=== PATIENT | male | born 1945 | race Caucasian/White ===

== ENCOUNTER 2019-10-16 06:50 | Outpatient (CLI) | payer MEDICARE, SELFPAY ==
--- NOTE | ~2019-10-16 | MR_ITS ---
EXAMINATION: MR pelvis wo/w con INDICATION: Prostate cancer TECHNIQUE: Coronal SSFSE ARC, Axial and Coronal 2D FIESTA FatSat, Axial T2 FS, Axial SSFSE BH ARC, Ax ial 3D DualEcho BH, Axial SSFSE-IR Frank, Axial DWI b=600, pre and dynamic postcontrast Axial LAVA ARC, WATER:POST Cor LAVA-FLEX COMPARISON: None available CONTRAST: Multihance, 14 cc FINDINGS: Prostatomegaly is noted. There is a 1.9 x 1.7 cm area of T1 hypointense, T2 hyperintense si gnal intensity situated between the rectum and prostate, likely related to biopsy. Areas of T1 signal hyperintensity without enhancement of the prostate also likely reflect biopsy changes. There are no pathologically enlarged pelvic lymph nodes. The visualized osseous structures are normal. No dilated loops of bowel are present. No abnormal enhancement is identified after contrast administration. Ther e is a moderate volume of colonic stool. IMPRESSION: 1. Prostatomegaly and changes of transrectal biopsy without acute findings or metastatic disease iden tified. Reviewed, dictated and finalized at location A. IMPRESSION: 1. Prostatomegaly and changes of transrectal biopsy without acute findings or m etastatic disease identified.
[2019-10-16 07:32] LABS: Estimated Glomerular Filt Rate > 60
== END 2019-10-16 06:51 | disposition home or self-care (01) ==
PROVIDERS: PCP Emergency Medicine; Visit Provider Radiology Radiation Oncology
DX: C61 Malignant neoplasm of prostate (principal)
CPT/HCPCS: 36415; 72197; A9577

== ENCOUNTER 2025-02-10 21:22 | Emergency (ER) | payer MEDICARE, SELFPAY ==
--- OUTSIDE RECORDS SUMMARY | 2024-01-14 11:55 | XMS_ITS | Continuity of Care Document ---
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 Location Location Details Encounter Type Encounter Number Reason For Visit Attending Provider ADM Date DC Date Status Disposition Source [facility] Outpatient Encounter [id number] 01/13 [facility]
[2025-02-10] VITALS (9 sets, daily range): BP systolic 101–127; BP diastolic 49–96; PULSE 60–99; RESP 12–19; TEMP 36.6; O2SAT 97–100
--- NOTE | ~2025-02-10 | CT_ITS ---
CT abdomen pelvis w con INDICATION:abd pain, constipation . COMPARISON: None. TECHNIQUE: Axial images of the abdomen and pelvis were obtained following infusion of 100 mL Isovue 300. Dose optimization technique was utilized. FINDINGS: Mild groundglass opacity are noted at the lung bases. There is a small hiatal hernia. Fatty infiltration of the liver is noted. No intrahepatic mass or ductal dilatation is evident. The gallbladder is unremarkable. The pancreas and spleen are normal in appearance. The adrenal glands are symmetric in size. The kidneys demonstrate symmetric uptake and excretion of contrast. No cystic mass is evident. There is no solid mass. There is no hydronephrosis. Stomach and small bowel loops unremarkable. There is moderate diffuse stool retention consistent with constipation. No bowel obstruction. The bladder and rectum are normal. Prostate gland is unremarkable. Undescended right testicle is noted. No free intraperitoneal fluid or air is evident. There is no significant retroperitoneal lymphadenopathy. The aorta, visceral vessels and renal arteries demonstrate normal caliber and patency. The lower thoracic and lumbar vertebrae are in normal alignment. IMPRESSION: Moderate constipation. Undescended right testicle. All CT scans at this facility are performed using low dose modulation techniques as appropriate to perform exam including the following: automated exposure control; use of iterative reconstruction technique; adjustment of the mA and/or kV according to patient size (this includes techniques or standardized protocols for targeted exams where dose is matched to indication/reason for exam). Reviewed, dictated and finalized at location S. ATOLOGY TECHNICIAN IMPRESSION: Moderate constipation. Undescended right testicle. All CT scans at this facility are performed using low dose modulation techniqu es as appropriate to perform exam including the following: automated exposure c ontrol; use of iterative reconstruction technique; adjustment of the mA and/or kV according to patient size (this includes techniques or standardized protocol s for targeted exams where dose is matched to indication/reason for exam).
--- NOTE | ~2025-02-10 | XR_ITS ---
XR chest 2V HOSTORY: syncope COMPARISON:[ None] FINDINGS: Frontal and lateral views of the chest were obtained. The lungs are clear. The heart size is normal in size. Pulmonary vasculature is unremarkable. Osseous structures are intact. IMPRESSION: No acute lung findings.] [ ] Reviewed, dictated and finalized at location S. CTOR OF CONSUMER MARKETING
--- NOTE | 2025-02-10 21:30 | ECG_ITS ---
Test Date: 2025-02-10 21:45:45 Measurements Intervals Amber Rate: 60 P: 17 KS: 81 QRS: 18 QRSD: 105 T: 67 QT: 396 QTc: 398 Interpretive Statements SINUS RHYTHM WITH SHORT KS INTERVAL T WAVE ABNORMALITY IN ANTEROLATERAL LEADS- CONSIDER ISCHEMIA BASELINE ARTIFACT- I, II, III, AVR, AVL, AVF, V1-V6 ABNORMAL ECG No previous ECG available for comparison Electronically Signed On 02-11-2025 06:16:03 [employer]S DEPARTMENT SUPERVISOR by Santi Atkinson D.O.
[2025-02-10 21:57] LABS: Hematocrit 42.5 % (42.0-52.0); Hemoglobin 14.7 g/dL (14.0-18.0); Immature Granulocyte Percent A 0.6 % (0-0.5); Lymphocytes Absolute Auto 1.98 K/mm3 (0.9-3.2); Mean Corpuscular HGB Conc 34.6 g/dl (32-36); Mean Corpuscular Hemoglobin 31.6 pg (26-34); Mean Corpuscular Volume 91.4 fl (80-100); Nucleated Red Blood Cells Absolute Auto 0.000 K/mm3 (0.0-0.012); Nucleated Red Blood Cells Perc 0.0 % (0.0-0.2); Platelet Count Result 162 k/mm3 (150-375); Red Blood Count 4.65 M/mm3 (4.6-6.20); White Blood Count 14.9 K/mm3 (4.5-10.0)
[2025-02-10 22:06] LABS: Alanine Aminotransferase 9 U/L (6-50); Albumin Level 4.1 g/dL (3.5-5.1); Alkaline Phosphatase 47 U/L (38-126); Anion Gap 9 mmol/L (4-12); Aspartate Amino Transferase 23 U/L (17-59); Bilirubin,Total 0.8 mg/dL (0.2-1.3); Blood Urea Nitrogen 23 mg/dL (9-20); Calcium 9.0 mg/dL (8.4-10.2); Carbon Dioxide 24 mmol/L (22-30); Chloride 101 mmol/L (98-107); Estimated CRCL calculation 47 ml/min; Estimated Glomerular Filt Rate 60; Glucose 189 mg/dL (65-110); Potassium 3.2 mmol/L (3.4-5.0); Sodium 134 mmol/L (137-145); Total Protein 6.8 g/dL (6.3-8.2)
--- NOTE | 2025-02-10 22:29 | ED_ITS ---
HPI - Abdominal Pain General Chief Complaint: Syncope Stated Complaint: NEAR SYNCOPE, LOW B/P, NECK & ABD PAIN Time Seen by Provider: 02/10/25 22:16 History of Present Illness HPI narrative: 79-year-old male with a past medical history including hypertension, diabetes, parkinsonism presenting to the emergency department today after he was having trouble going to the bathroom. Patient states he was bearing down trying to have a bowel movement and unable to. He spent a long time on the toilet trying to poop. He states he felt very weak and lightheaded and became sweaty. EMS noted that his blood pressure was in the 70s and then quickly rebounded back to normal with suspect vagal response as he was no longer sweaty, nauseous, or having abnormal vitals. Patient states he was able to pass a small bowel movement but has a history of hemorrhoids. No rectal bleeding. Still feels like he is constipated. Denies any nausea, vomiting, fever, chills. He states he had some initial neck pain after he was sitting down head down on the toilet for long period of time over an hour but this is resolved now and no longer having any neck pain. Denies any chest pain, difficulty breathing, back pain, nausea, vomiting. States he still having some abdominal cramping in his lower quadrants and feels like he needs to poop. Was otherwise in his normal state of health without any recent health concerns. States it has happened to him previously secondary to potential hemorrhoid. Related Data Home Medications ?Medication ?Instructions ?Recorded ?Confirmed ?Last Taken ?Type carbidopa-levodopa [Sinemet] PO TID 12/30/24 12/30/24 Unknown History Allergies Allergy/AdvReac Type Severity Reaction Status Date / Time No Known Allergies Allergy Unverified 01/02/24 13:45 Review of Systems 2 Review of Systems: As reviewed above in HPI All systems reviewed & are unremarkable except as noted in HPI and below PMFSH Past Medical History Medical History Colon cancer screening declined Parkinsonism Bradycardia (~10/09/24) heart rate 40 at specialist office Tremor of right hand Arthralgia of both hands Low back pain radiating to right leg Erectile dysfunction Hyperlipidemia History of prostate cancer Treatment from Oct 2019-2019 High cholesterol Hypertension Diabetes Surgical History Surgical History H/O hand surgery Right-1999 Left- 2009 History of torn meniscus of right knee 1989 &1990 H/O elbow surgery right elbow 1980 Family History Family History Mother Lung cancer Grandparent Heart disease Acute myocardial infarction [place] Social History Social History Smoking status: Never smoker Alcohol intake: never Substance use: never Exam 2 Narrative: GENERAL: [Well-appearing, well-nourished, and in no acute distress.] HEAD: [Normocephalic, atraumatic.] EYES: [PERRLA and EOMI.] ENT: Nares clear, no rhinorrhea or epistaxis. Mucous membranes moist. NECK: Supple. CHEST: [Clear to auscultation. No respiratory distress.] HEART: [Regular rate and rhythm]. No murmur heard. [Normal peripheral pulses.] ABDOMEN: Soft and nondistended, minimally tender in the left lower quadrant to deep palpation without any signs of hernia or palpable masses. EXTREMITIES: Normal range of motion. [No edema.] SKIN: Warm, dry, no rash. NEURO: [No focal deficits]. Alert and oriented [x3.] PSYCH: [Normal mood and affect.] Course Vital Signs Vital signs: Vital Signs Temperature 36.6 C 02/10/25 21:30 Pulse Rate 64 02/10/25 21:30 Respiratory Rate 13 02/10/25 21:30 Blood Pressure 105/59 L 02/10/25 21:30 Pulse Oximetry 98 02/10/25 21:30 Oxygen Delivery Room Air 02/10/25 21:30 Temperature 36.6 C 02/10/25 21:30 Pulse Rate 81 02/11/25 01:16 Respiratory Rate 12 02/11/25 01:16 Blood Pressure 138/73 02/11/25 01:16 Pulse Oximetry 100 02/11/25 01:16 Oxygen Delivery Room Air 02/10/25 21:30 [facility] MDM Narrative Medical decision making narrative: 79-year-old male with a past medical history including hypertension, diabetes, parkinsonism presenting to the emergency department today after he was having trouble going to the bathroom. Patient states he was bearing down trying to have a bowel movement and unable to. He spent a long time on the toilet trying to poop. He states he felt very weak and lightheaded and became sweaty. EMS noted that his blood pressure was in the 70s and then quickly rebounded back to normal with suspect vagal response as he was no longer sweaty, nauseous, or having abnormal vitals. Patient states he was able to pass a small bowel movement but has a history of hemorrhoids. No rectal bleeding. Still feels like he is constipated. Denies any nausea, vomiting, fever, chills. He states he had some initial neck pain after he was sitting down head down on the toilet for long period of time over an hour but this is resolved now and no longer having any neck pain. Denies any chest pain, difficulty breathing, back pain, nausea, vomiting. States he still having some abdominal cramping in his lower quadrants and feels like he needs to poop. Was otherwise in his normal state of health without any recent health concerns. States it has happened to him previously secondary to potential hemorrhoid. Patient is overall very well-appearing not in any distress. He has tenderness with deep palpation left lower quadrant. No palpable masses or hernias. Blood pressure 105/59 slightly on the low side. No tachycardia, fever, hypoxemia. Suspect vagal response, constipation, hemorrhoid, diverticulitis, intra- abdominal infection less likely. Low suspicion cardiac causes. Workup underway including EKG, laboratory studies, CT scan of the abdomen pelvis. He was given Toradol and fluids and re-evaluated. CT scan shows moderate constipation. Laboratory studies are unremarkable and unrevealing. Patient's blood pressure came up with fluids. He successfully had a bowel movement after medications. Safe for discharge as he is presently asymptomatic and feels back to baseline. Vital signs remained stable. No emergent concerns at this time. Differential Diagnosis Differential Diagnosis: Suspect vagal response, constipation, hemorrhoid, diverticulitis, intra- abdominal infection less likely. Low suspicion cardiac causes. Lab Data MDM Lab Attestation statement: I personally reviewed the patient's lab results. 02/10/25 21:51 02/10/25 21:51 Labs: Lab Results 02/10/25 Range/Units 21:51 WBC 14.9 H (4.5-10.0) K/mm3 RBC 4.65 (4.6-6.20) M/mm3 Hgb 14.7 (14.0-18.0) g/dL Hct 42.5 (42.0-52.0) % MCV 91.4 (80-100) fl MCH 31.6 (26-34) pg MCHC 34.6 (32-36) g/dl RDW 12.4 (11.5-14.5) % Plt Count 162 (150-375) k/mm3 MPV 10.3 (7.4-10.4) fl Immature Gran % (Auto) 0.6 H (0-0.5) % Neut % (Auto) 78.0 H (45.5-73.1) % Lymph % (Auto) 13.3 L (18.3-44.2) % Hudspeth % (Auto) 7.4 (2.6-8.5) % Eos % (Auto) 0.3 (0-4.4) % Baso % (Auto) 0.4 (0.2-1.2) % Lymph # (Auto) 1.98 (0.9-3.2) K/mm3 Hudspeth # (Auto) 1.1 H (0.1-0.6) K/mm3 Eos # (Auto) 0.0 (0-0.3) K/mm3 Baso # (Auto) 0.1 (0.0-0.1) K/mm3 Abs Immat Gran (auto) 0.09 H (0.00-0.031) K/mm3 Absolute Neuts (auto) 11.7 H (1.3-6.7) K/mm3 Absolute Nucleated RBC 0.000 (0.0-0.012) K/mm3 Nucleated RBC % 0.0 (0.0-0.2) % Sodium 134 L (137-145) mmol/L Potassium 3.2 L (3.4-5.0) mmol/L Chloride 101 (98-107) mmol/L Carbon Dioxide 24 (22-30) mmol/L Anion Gap 9 (4-12) mmol/L BUN 23 H (9-20) mg/dL Creatinine 1.18 (0.7-1.3) mg/dL Estim Creat Clear Calc 47 ml/min Estimated GFR 60 (59 - ) Glucose 189 H (65-110) mg/dL Calcium 9.0 (8.4-10.2) mg/dL Total Bilirubin 0.8 (0.2-1.3) mg/dL AST 23 (17-59) U/L ALT 9 (6-50) U/L Alkaline Phosphatase 47 (38-126) U/L Total Protein 6.8 (6.3-8.2) g/dL Albumin 4.1 (3.5-5.1) g/dL Imaging Data Attestation: I personally reviewed and interpreted this imaging study as follows: My impression: Impressions Chest X-Ray 02/10/25 22:06 IMPRESSION: No acute lung findings.] [ ] Abdomen/Pelvis CT 02/10/25 22:51 IMPRESSION: Moderate constipation. Undescended right testicle. All CT scans at this facility are performed using low dose modulation techniques as appropriate to perform exam including the following: automated exposure control; use of iterative reconstruction technique; adjustment of the mA and/or kV according to patient size (this includes techniques or standardized protocols for targeted exams where dose is matched to indication/reason for exam). Radiologist's impression: ITS Impressions Chest X-Ray 02/10/25 22:06 IMPRESSION: No acute lung findings.] [ ] Abdomen/Pelvis CT 02/10/25 22:51 IMPRESSION: Moderate constipation. Undescended right testicle. All CT scans at this facility are performed using low dose modulation techniques as appropriate to perform exam including the following: automated exposure control; use of iterative reconstruction technique; adjustment of the mA and/or kV according to patient size (this includes techniques or standardized protocols for targeted exams where dose is matched to indication/reason for exam). Discharge Plan Discharge Clinical Impression: Constipation, Vasovagal episode Patient Disposition: Home Condition: Stable Instructions: Antibiotic Form, Constipation (DC), Near Syncope (ED) Additional Instructions: CT scan shows constipation. No signs of infection. Some slight dehydration which was corrected with fluids. We will prescribe you medications to control constipation at home. Follow-up with regular primary care provider. Return with any emergent concerns. Patient Language: Amharic Prescriptions: New polyethylene glycol 3350 [Miralax] 17 gram/dose powder 17 g PO BID Qty: 238 0RF magnesium citrate Solution 300 ml PO DAILY PRN (Reason: constipation) Qty: 296 0RF No Action tadalafil 5 mg tablet 5 mg PO DAILY Qty: 30 11RF (DME) blood-glucose meter [OneTouch Ultra2 Meter] Misc See Rx Instructions .Route Qty: 1 0RF Rx Instructions: check blood sugar daily (DME) OneTouch Ultra Test Strip See Rx Instructions .Route Qty: 100 3RF Rx Instructions: check blood sugar daily (DME) lancing device Misc See Rx Instructions .Route Qty: 1 1RF Rx Instructions: check blood sugar daily carbidopa-levodopa [Sinemet] PO TID Rx Instructions: per neuro hydrochlorothiazide 25 mg tablet 25 mg PO DAILY Qty: 90 3RF meloxicam 15 mg tablet 15 mg PO DAILY Qty: 90 3RF rosuvastatin 5 mg tablet 5 mg PO DAILY Qty: 90 3RF glipizide 2.5 mg tablet extended release 24hr 2.5 mg PO DAILY Qty: 90 3RF lisinopril 20 mg tablet 20 mg PO DAILY Qty: 90 3RF (DME) lancets [OneTouch Delica Plus Lancet] 33 gauge misc See Rx Instructions .Route Qty: 100 3RF Rx Instructions: check blood sugars daily Follow-up/Referrals: Ayesha Brown APRN [Primary Care Provider, Family Practice] Time of Disposition: 01:26
--- OUTSIDE RECORDS SUMMARY | 2025-02-10 22:47 | XMS_ITS | Clinical Summary ---
Author Organization [facility] Address [address] [place] [address] Care Team Providers Care Trademark Affixer Name Role Phone Elias Hood MD Primary Care Provide r Allergies No known active allergies Medications meloxicam (MOBIC) 15 mg tablet Take 15 mg by mouth daily. Active atenoloL (TENORMIN) 25 mg tablet Take 25 mg by mouth daily. Active simvastatin (ZOCOR) 10 mg tablet Take 10 mg by mouth daily with supper. Active sildenafiL, pulm.hypertensi on, (REVATIO) 20 mg Tablet Take 20 mg by mouth 3 times daily. Active coenzyme Q10 100 mg Capsule Take 100 mg by mouth daily. Active aspirin (DENNIS CHEWABLE) 81 mg Tablet, Chewable Take 81 mg by mouth daily. Active omeprazole (PriLOSEC) 20 mg Capsule, Delayed Release(E.C.) Take 20 mg by mouth daily. Active hydroCHLOROthia zide 25 mg tablet Take 1 Tablet (25 mg) by mouth daily. MUST SEE FOR FURTHER REFILLS 90 Tablet 12/22/2021 Active Active Problems Patient Care Coordination No te Formatting of this note migh t be different from the original. Sridhar Wallace MD--Arc Welder Apprentice ([facility] ) Problem Noted Date Diagnosed Date Dyspnea on exertion 12/04/2020 Benign hypertension 12/04/2020 Mixed hyperlipidemia 12/04/2020 LVH (left ventricular hypertrophy) 12/04/2020 Erectile dysfunction 12/04/2020 Social History Tobacco Use Types Packs/Day Years Used Date Smoking Tobacco: Never Smokeless Tobacco: Never Alcohol Use Standard Drinks/Week Comments Not Currently 0 (1 standard drink = 0.6 oz pur e alcohol) Sex and Gender Information Value Date Recorded Sex Assigned at Not on file Legal Sex Male 11:10 AM CDT Gender Identity Not on file Sexual Orientation Not on file Last Filed Vital Signs Vital Sign Reading Time Taken Comments Blood Pressure 110/70 11/24/2020 10:06 AM CDT Pulse 57 11/24/2020 10:06 AM CDT Temperature 36.4 C (97.5 F) 11/24/2020 10:06 AM CDT Respiratory Rate - - Oxygen Saturation 98% 11/24/2020 10:06 AM CDT Inhaled Oxygen Concentration - - Weight 79.2 kg (174 lb 8 oz) 11/24/2020 10:06 AM CDT Height 177.8 cm (5' 10) 11/24/2020 10:06 AM CDT Body Mass Index 25.04 11/24/2020 10:06 AM CDT Plan of Treatment Health Maintenance Due Date Last Done Comments DIABETES ANNUAL FOOT EXAM 11/11/1965 DIABETES ANNUAL RETINAL EXAM 11/11/1965 DIABETES MICROALBUMIN ANNUAL SCREEN 11/11/1965 LDL CHOLESTEROL ANNUAL 11/11/1965 ZOSTER VACCINE (1 of 2) 11/11/1997 DTAP/TDAP/TD VACCINES (1 - Tdap) 02/27/2004 02/25/19 05 DIABETES HBA1C Q 6 MONTHS 02/25/2021 08/25/2020 RSV VACCINE (60+ or ) (1 - 1-dose 75+ series) 11/11/2022 INFLUENZA VACCINE (#1) 2024 , 12/04/2018, 12/17/2017, Additional history exists COVID-19 Vaccine (3 - 2024-2 6 season) 2024 05/05/2020, 04/07/2020 PNEUMOCOCCAL VACCINE 50+ YEARS Completed 12/17/2017 , 01/16/2016 Insurance MEDICARE PART A AND B BS SUPP Care Teams Trademark Affixer Relationship Specialty Start Date End Date Elias Hood MD PCP - General Internal Medicine 11/24/20
--- OUTSIDE RECORDS SUMMARY | 2025-02-10 22:47 | XMS_ITS | Clinical Summary ---
Author Organization [facility] Address [facility] [place] [address] Care Team Providers Care Teacher Ballet Name Role Phone Martínez Mann MD Unavailable [phone] Augustin Holden MD Unavailable [phone] Ayesha Brown Primary Care Provider [phone] Allergies No known active allergies Medications aspirin 81 MG tablet Take 1 tablet by mouth daily. Active hydroCHLOROthiazide 25 MG tablet 1 Active coenzyme Q-10 (CO Q-10) 100 MG capsule Take 1 capsule (100 mg total) by mouth daily. Active tadalafil 20 MG tabletIndications:E rectile dysfunction of nonorganic origin Take 1 tablet (20 mg total) by mouth daily as needed for Erectile Dysfunction. 90 tablet 3 2 Active lisinopril 20 MG tabletIndications:E ssential hypertension Take 1 tablet (20 mg total) by mouth daily. 90 tablet 1 2 Active meloxicam 15 MG tabletIndications:G eneralized osteoarthritis Take 1 tablet (15 mg total) by mouth daily. 90 tablet 1 2 Active omeprazole 20 MG capsuleIndications: Gastroesophageal reflux disease with esophagitis without hemorrhage Take 1 capsule (20 mg total) by mouth daily. 90 capsule 1 2 Active simvastatin 10 MG tabletIndications:M ixed hyperlipidemia Take 1 tablet (10 mg total) by mouth daily. 90 tablet 1 2 Active tamsulosin 0.4 MG CapIndications:Sergio ocarcinoma of prostate (CMS/HCC HHS/HCC) Take 1 capsule (0.4 mg total) by mouth daily. 90 capsule 1 2 Active atenolol 50 MG tablet Take 0.5 tablets (25 mg total) by mouth daily. Active metFORMIN (GLUCOPHAGE) 500 MG tabletIndications:U ncontrolled type 2 diabetes mellitus with hyperglycemia (CMS/HCC HHS/HCC) TAKE 1 TABLET BY MOUTH TWICE A DAY WITH MEALS 180 tablet 2 Active atenolol (TENORMIN) 50 MG tablet Take 1 tablet (50 mg total) by mouth daily. 3 Active cyclobenzaprine (FLEXERIL) 5 MG tablet TAKE 1 TABLET BY MOUTH THREE TIMES DAILY NEEDED FOR 10 DAYS 3 Active hydroCHLOROthiazide (HYDRODIURIL) 25 MG tablet Take 1 tablet (25 mg total) by mouth daily. 2 Active lisinopril (PRINIVIL) 20 MG tablet Take 1 tablet (20 mg total) by mouth daily. 3 Active Active Problems Problem Noted Date Diagnosed Date Stage 3a chronic kidney disease 06/15/2021 Orthostatic hypotension 06/15/2021 LVH (left ventricular hypertrophy) 12/04/2020 Exertional dyspnea 12/04/2018 Lumbar disc herniation 09/02/2018 Lumbar radiculopathy 08/25/2018 Adenocarcinoma of prostate 07/09/2018 Overview (07/09/2018): Augustin Holden MD, [facility], with biannual visit with PSA for active surveillance for very low risk prostate cancer. 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 Capsulitis of right foot 12/01/2014 Equinus deformity of foot, acquired 12/01/2014 Hammer toe of right foot 11/25/2014 Diabetes mellitus type 2, controlled, without co mplications 04/15/2014 Generalized osteoarthritis 07/11/2013 Overview (12/04/2018): Overview: GENERAL OSTEOARTHROSIS Acid reflux disease 08/31/2011 Erectile dysfunction of nonorganic origin 2011 Essential hypertension 08/31/2011 Mixed hyperlipidemia 08/31/2011 Vitamin B12 deficiency 08/31/2011 Resolved Problems Problem Noted Date Diagnosed Date Resolved Date Elevated prostate specific antigen (PSA) 08/31/2011 07/21/2019 Immunizations Immunization Administration Dates Next Due Fluzone High Dose - >Age 65 (Prefilled Syringe) 12/13/2020,12/03/2019,12/04/2018,2017,01/08/2017,01/16/2016,12/31/2014 Influenza (Generic) 11/18/2009 Influenza Adult (Generic) 12/17/2017,,01/16/2016,2014,12/21/2013 MODERNA COVID-19 (12+) MRNA, LNP-S, PF, 100 MCG/ 0.5 ML DOSE 12/26/2021,07/06/2021,05/05/2020,2020 Pneumococcal (Pneumovax 23) 12/17/2017 Pneumococcal (Prevnar 13) 01/16/2016 Td (Tenivac) preservative free 02/26/2004 Family History Medical History Relation Comments hepatitis C Brother lung cancer Father Cancer Mother lung cancer Mother Relation Status Comments Brother Alive Father Mother Social History Tobacco Use Types Packs/Day Years Used Date Smoking Tobacco: Never Smokeless Tobacco: Never Tobacco Cessation:Counseling Given: Not Answered Alcohol Use Standard Drinks/Week Comments No 0 (1 standard drink = 0.6 oz pur e alcohol) rare AUDIT-C Answer Date Recorded Frequency of Alcohol Consumption Never 08/02/2018 Average Number of Drinks Not on file 019 Frequency of Binge Drinking Not on file 09/2018 PHQ-2 Answer Date Recorded PHQ-2 Score - If the patient scores above 3, please move on to questions 3-9 0 06/15/2021 Education Answer Date Recorded What is the highest level of school you have completed or the highest degree you have received? Some college, no degree 03/31/2018 Sex and Gender Information Value Date Recorded Sex Assigned at Not on file Legal Sex Male 8:34 PM CDT Gender Identity Not on file Sexual Orientation Not on file Occupation Industry Job Start Date Job End Date Retired from [employer], business machine mechanic Not on file Not on file Not on file Last Filed Vital Signs Vital Sign Reading Time Taken Comments Blood Pressure 145/70 10/18/2022 12:15 PM CDT Pulse 54 10/18/2022 12:15 PM CDT Temperature 36.5 C (97.7 F) 10/18/2022 11:46 AM CDT Respiratory Rate 20 10/18/2022 12:15 PM CDT Oxygen Saturation 100% 10/18/2022 12:15 PM CDT Inhaled Oxygen Concentration - - Weight 72.2 kg (159 lb 3.2 oz) 10/18/2022 11:46 AM CDT Height 177.8 cm (5' 10) 10/18/2022 11:46 AM CDT Body Mass Index 22.84 10/18/2022 11:46 AM CDT Plan of Treatment Health Maintenance Due Date Last Done Comments Kidney Health Evaluation 1945 Diabetes: Retinopathy Eye Exam 11/11/1965 Zoster Vaccines (1 of 2) 11/11/1997 DTaP, Tdap and Td Vaccines (1 - Tdap) 02/27/2004 02/26/2004 Annual Medicare Wellness Visit 11/11/2012 RSV Immunization or 60+ Years (1 - 1-dose 75+ series) 11/11/2022 Hemoglobin A1C 03/16/2023 12/14/2022, 0502/2022, 12/25/2021, Additional history exists Lipid Panel 06/26/2023 06/25/2022, 05/2021, 02/02/2020, Additional history exists COVID-19 Vaccine (2024- season) 2024 12/26/2021, 08/02/2021, 07/06/2021, Additional history exists Influenza Adult (#1) 2024 12/13/2020, 12/03/2019, 12/04/2018, Additional history exists Colorectal Cancer Screening Colonoscopy (10 Years) Discontinued 09/17/2012, 09/17/2012 Hepatitis C Completed 01/16/2016 Pneumococcal Vaccine: 50+ Years Completed 12/17/2017, 01/16/2016 Hepatitis A Vaccines Aged Out No long er eligible based on patient's age to complete this topic Meningococcal B Vaccine Aged Out No l onger eligible based on patient's age to complete this topic Meningococcal Vaccine Aged Out No erma oren eligible based on patient's age to complete this topic RSV Immunizations Under 20 Months Aged Out No longer eligible based on patient's age to complete this topic Procedures Procedure Name Priority Date/Time Associated Diagnosis Comments HEMOGLOBIN, GLYCOSYLATED Routine 12/14/2022 8:39 AM CDT Encounter for long-term (current) drug use LIPID PANEL Routine 06/25/2022 2:21 PM CDT Encounter for long-term (current) drug use HEPATITIS C ANTIBODY Routine 01/16/2016 10:39 AM [employer] COLONOSCOPY Routine 09/17/2012 12:00 AM CDT from Last 3 Months or Most Recently Relevant to Health Maintenance Results * (ABNORMAL) HEMOGLOBIN, GLYCOSYLATED (12/14/2022 8:39 AM CDT) HGB A1C 6.8(H) <5.7 % 12/14/2022 11:12 AM CDT [facility] Comment: INCREASED RISK OF DIABETES <5.7% NON-DIABETES 5.7-6.4% INCREASED RISK FOR FUTURE DIABETES > OR = 6.5 CONSISTENT WITH DIABETES STANDARDS OF MEDICAL CARE IN DIABETES-2010 DIABETES CARE, 33(SUPP 1): S1-S61,2010 ESTIMATED AVG GLUCOSE 148 mg/dL 12/14/2022 11:12 AM CDT [facility] 12/14/2022 8:39 AM CDT us Elias Hood MD LABORATORY Final Res ult [facility] [address] [place] [address], [place] [phone] * LIPID PANEL (06/25/2022 2:21 PM CDT) CHOLESTEROL 155 <200.0 MG/DL 06/25/2022 3:07 PM CDT [facility] TRIGLYCERIDES 78 <150 MG/DL 06/25/2022 3:07 PM CDT [facility] HDL 46 >40.0 MG/DL 06/25/2022 3:07 PM T [facility] LDL (CALCULATED) 93 <100 MG/DL 06/26/19 3:07 PM T [facility] NON HDL CHOLESTEROL 109 <130 MG/DL 06/25 3:07 PM T [facility] CHOL/HDL RATIO 3.4 0.0 - 4.5 06/25/2022 3:07 PM T [facility] VLDL CALCULATION 16 5 - 55 MG/DL 06/25/2022 3:07 PM T [facility] LIPID INTERPRETATION 06/25/2022 3:07 PM T [facility] Comment: NIH CONCENSUS REPORT RECOMMENDATIONS: ADULT CHILD LOW RISK: CHOLESTEROL <200 <170 TRIGLYCERIDE <150 --- HDL >=60 --- LDL <100 <110 BORDERLINE: CHOLESTEROL 200-239 170-199 TRIGLYCERIDE 150-199 --- HDL 40-59 --- LDL 100-159 110-129 HIGH RISK: CHOLESTEROL >=240 >=200 TRIGLYCERIDE >=200 --- HDL <40 --- LDL >=160 >=130 06/25/2022 2:21 PM CDT us Elias Hood MD LABORATORY Final Res ult [facility] [address] [place] [address], * HEPATITIS C ANTIBODY (01/16/2016 10:39 AM [employer]) [facility] HEPATITIS C AB NON-REACTIVE TESTING PERFORMED AT [facility] [address] [place] [address] NR [facility] TO EPIC CONVERSION 01/16/2016 10:3 9 AM [employer] 01/16/2016 10:39 AM [employer] Narrative [facility] TO EPIC CONVERSION - 01/17/2016 5:08 PM [employer] Result Communication: Mail Results to Patient us Elias Hood MD LABORATORY Final Res ult [facility] TO EPIC CONVERSION * Colonoscopy (09/17/2012 12:00 AM CDT) 09/17/2012 09/17/2012 Narrative [facility] TO EPIC CONVERSION - 09/17/2012 12:00 AM CDT Documented hx of procedure Procedure Note Megan Godinez MD - 12/29/2017 Documented hx of procedure us Generic Nathan Godinez MD GI PROCEDURE ORDERABLES Final Result Performing Organization Address City/[facility] [address]/[facility] Co de Phone Number [employer] TO EPIC CONVERSION from Last 3 Months or Most Recently Relevant to Health Maintenance Insurance MEDICARE [facility] COMMERCIAL PAYER MEDICARE Care Teams Teacher Ballet Relationship Specialty Start Date End Date Ayesha Brown APNP [address] [place] [address] PCP - General Nurse Practitioner Family 07/17/24 Martínez Mann MD Three [facility]. [address] [address] [place] Insurance Investigator CARDIOVASCULAR DISEASE 01/06/19 Augustin Holden MD Three [facility]. [address] [address] Consulting Physician UROLOGY 07/24/19
--- OUTSIDE RECORDS SUMMARY | 2025-02-10 22:47 | XMS_ITS | Encounter Summary ---
Author Organization [facility] Address [facility] [place] [address] Care Team Providers Care Ruling Machine Set Up Operator Name Role Phone Elias Hood MD Primary Care Provider [phone] Martínez Mann MD Unavailable [phone] Augustin Holden MD Unavailable [phone] Lisandra Freire MD Primary Care Provider [phone] Elias Hood MD Primary Care Provider [phone] Ayesha Brown Primary Care Provider [phone] Encounter Details Date Type Department Care Team (Late st Contact Info) Description 06/23/2019 MyChart Message Enc [facility] Medical Group Multispecialty Care - [facility] [address] [facility], [address] [place] [address] Phi Coy PA [facility] [place] [address] Other Social History Tobacco Use Types Packs/Day Years Used Date Smoking Tobacco: Never Smokeless Tobacco: Never Alcohol Use Standard Drinks/Week Comments No 0 (1 standard drink = 0.6 oz pur e alcohol) social AUDIT-C Answer Date Recorded Frequency of Alcohol Consumption Never 08/02/2018 Average Number of Drinks Not on file 019 Frequency of Binge Drinking Not on file 09/2018 Education Answer Date Recorded What is the [...] Start Date Job End Date Retired from [employer], body and fender mechanic apprentice Not on file Not on file Not on file documented as of this encounter Plan of Treatment Not on file documented as of this encounter Visit Diagnoses Not on filedocumented in this encounter Care Teams Ruling Machine Set Up Operator Relationship Specialty Start Date End Date Elias Hood MD PCP - General INTERNAL MEDICINE 01/08/18 06/11/21 [place] [address] [facility]. [address] [place] [address] PCP - General FAMILY PRACTICE 06/12/21 12/24/21 Elias Hood MD [address] [facility] [address] [place] [address] PCP - General INTERNAL MEDICINE 12/25/21 07/16/24 Ayesha Brown APNP [address] [place] [phone] PCP - General Nurse Practitioner [facility] 07/17/24 Martínez Mann MD Three [facility]. [email or web address] [address] [place], [place] [id number] [place] Osteopathic Resident CARDIOVASCULAR DISEASE 01/06/19 Augustin Holden MD Three [facility]. [facility] [[email or web address] [address] [place] [address] Consulting Physician UROLOGY 07/24/19 documented as of this encounter
--- OUTSIDE RECORDS SUMMARY | 2025-02-10 22:47 | XMS_ITS | Encounter Summary ---
Author Organization [facility] Address [facility] [place] [address] Care Team Providers Care Gold Buyer Name Role Phone Elias Hood MD Primary Care Provider [phone] Martínez Mann MD Unavailable [phone] Augustin Holden MD Unavailable [phone] Lisandra Freire MD Primary Care Provider [phone] Elias Hood MD Primary Care Provider [phone] Ayesha Brown Primary Care Provider [phone] Encounter Details Date Type Department Care Team (Late st Contact Info) Description 07/24/2019 MyChart Message Enc [facility] Medical Group Family & Internal Medicine [facility] [address] [place] [address] Elias Hood MD [address] [address] RE: Question Social History Tobacco Use Types Packs/Day Years [...] please move on to questions 3-9 0 07/13/2019 Education Answer Date Recorded What is the [...] Start Date Job End Date Retired from [employer], 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 No / Unsure 07/21/2019 7:48 AM CDT documented as of this encounter Plan of Treatment Not on file documented as of this encounter Visit Diagnoses Not on filedocumented in this encounter Care Teams Gold Buyer Relationship Specialty Start Date End Date Elias Hood MD PCP - General INTERNAL MEDICINE 01/08/18 06/11/21 [place] [address] [facility]. [address] [place] [address] PCP - General FAMILY PRACTICE 06/12/21 12/24/21 Elias Hood MD [address] [facility] [address] [facility] [address] [place] [address] PCP - General INTERNAL MEDICINE 12/25/21 07/16/24 Ayesha Brown APNP [address] [place] [phone] PCP - General Nurse Practitioner Family 07/17/24 Martínez Mann MD [facility]. [facility] [address] [place] [address] [place] Advertising Clerk CARDIOVASCULAR DISEASE 01/06/19 Augustin Holden MD [facility]. [address] [address] Consulting Physician UROLOGY 07/24/19 documented as of this encounter
[2025-02-10] MEDS: KETOROLAC 15 MG/ML VIAL (*BKC) IV PUSH (22:49)
[2025-02-10] MEDS: LACTATED RINGERS 1,000 ML 999 ML IV CONT (22:49)
[2025-02-11 00:02] VITALS: BP 125/65; PULSE 71; RESP 12; O2SAT 99
[2025-02-11] MEDS: MAGNESIUM CITRATE 300 ML BTL PO (00:12)
[2025-02-11 01:16] VITALS: BP 138/73; PULSE 81; RESP 12; O2SAT 100
== END 2025-02-11 01:45 | disposition home or self-care (01) ==
PROVIDERS: Emergency Provider Student in an Organized Health Care Education/Training Program; PCP Nurse Practitioner Family
DX: K59.00 Constipation, unspecified (principal); R55 Syncope and collapse; I10 Essential (primary) hypertension; E11.9 Type 2 diabetes mellitus without complications; G20.A1 Parkinson's disease without dyskinesia, without mention of fluctuations
CPT/HCPCS: 36415; 71046; 74177; 80053; 85025; 93005; 96361; 96374; 99284; A9270; J1885; J7120; Q9967